=== PATIENT | female | born 1970 | race American Indian/Alaskan Native ===

== ENCOUNTER 2017-08-31 22:54 | Emergency (ER) | payer OTHER ==
[2017-08-31 23:02] VITALS: BP 96/55
--- NOTE | 2017-08-31 23:43 | Emergency Department Report ---
Abscess Boil HPI - HPI Duration: 1 Day Location: Lower Extremity Severity: Mild History: Yes Pain, Yes Insect Bite, No Fever, No Purulent Drainage, No Numbness , No Foreign Body, No Previous History HPI: Insect bite right lateral thigh less than 1 cm mild erythema no drainage no fever <FELICITY GARCIA - Last Filed: 08/31/17 23:39> <MIKI VELASQUEZ - Last Filed: 09/01/17 20:06> - HPI Chief Complaint: Skin/Abscess/Foreign Body Stated Complaint: INSECT BITE Time Seen by Provider: 08/31/17 23:23 Home Medications: Previous Rx's Medication Instructions Recorded Last Taken Type Neomycin/Bacitracin/Polymyxinb 1 applicatio TP BID 10 Days #1 tube 08/31/17 Unknown Rx [Neosporin Antibiotic Ointment] Allergies/Adverse Reactions: Allergies Allergy/AdvReac Type Severity Reaction Status Date / Time No Known Allergies Allergy Verified 08/31/17 23:02 ED Review of Systems ROS: Stated complaint: INSECT BITE Other details as noted in HPI Constitutional: denies: chills, fever Eyes: denies: eye pain, eye discharge, vision change ENT: denies: ear pain, throat pain Respiratory: denies: cough, shortness of breath, wheezing Cardiovascular: denies: chest pain, palpitations Endocrine: no symptoms reported Gastrointestinal: denies: abdominal pain, nausea, diarrhea Genitourinary: denies: urgency, dysuria, discharge Musculoskeletal: denies: back pain, joint swelling, arthralgia Skin: other (insect bite ) Neurological: denies: headache, weakness, paresthesias Psychiatric: denies: anxiety, depression Hematological/Lymphatic: denies: easy bleeding, easy bruising <FELICITY GARCIA - Last Filed: 08/31/17 23:39> ROS: Stated complaint: INSECT BITE Other details as noted in HPI <MIKI VELASQUEZ - Last Filed: 09/01/17 20:06> ED Past Medical Hx - Past Medical History Previous Medical History?: No - Surgical History Past Surgical History?: Yes Additional Surgical History: tubal ligation. recontructive surgery to face. right ankle - Social History Smoking Status: Current Every Day Smoker Substance Use Type: Alcohol, Marijuana <FELICITY GARCIA - Last Filed: 08/31/17 23:39> <MIKI VELASQUEZ - Last Filed: 09/01/17 20:06> - Medications Home Medications: Home Medications Medication Instructions Recorded Confirmed Last Taken Type Neomycin/Bacitracin/Polymyxinb 1 applicatio TP BID 10 Days #1 tube 08/31/17 Unknown Rx [Neosporin Antibiotic Ointment] ED Abscess Boil Physical Exam - Exam General: Vital signs noted. No distress. Alert and acting appropriately. Front/Back of Body, Lg (Color): 1 - right lateral thigh less than 1 cm mild erythema no drainage nonfluctuant no drainage Size: 1 cm Exam: Yes Tenderness, Yes Normal Neurologic Exam, Yes Normal Circulation, No Fluctuance, No Surrounding Cellulites/Erythema, No Lymphangitis, No Crepitation , No Heart Murmur <FELICITY GARCIA - Last Filed: 08/31/17 23:39> - Exam General: Vital signs noted. No distress. Alert and acting appropriately. <MIKI VELASQUEZ - Last Filed: 09/01/17 20:06> ED Course Vital Signs 08/31/17 22:59 Temperature 98.2 F Pulse Rate 82 Respiratory 18 Rate Blood Pressure 96/55 O2 Sat by Pulse 97 Oximetry <FELICITY GARCIA - Last Filed: 08/31/17 23:39> Vital Signs 08/31/17 22:59 Temperature 98.2 F Pulse Rate 82 Respiratory 18 Rate Blood Pressure 96/55 O2 Sat by Pulse 97 Oximetry <MIKI VELASQUEZ - Last Filed: 09/01/17 20:06> Critical care attestation.: If time is entered above; I have spent that time in minutes in the direct care of this critically ill patient, excluding procedure time. <FELICITY GARCIA - Last Filed: 08/31/17 23:39> Critical care attestation.: If time is entered above; I have spent that time in minutes in the direct care of this critically ill patient, excluding procedure time. <MIKI VELASQUEZ - Last Filed: 09/01/17 20:06> ED Medical Decision Making - Medical Decision Making This is a insect bite mild irritation manual expression of scant purulent drainage , a pimple equivelant , no surrounding erythema Band-Aid applied and the bleeding patient given wound care instruction Neosporin soap and water follow-up PCP in 2-3 days. pt verbalized agreement and understanding of same <FELICITY GARCIA - Last Filed: 08/31/17 23:39> - Medical Decision Making I was available for consultations at all times during the patient stay. I did not personally see and was not involved in the care of the patient. <MIKI VELASQUEZ - Last Filed: 09/01/17 20:06> ED Disposition Is pt being admited?: No Does the pt Need Aspirin: No Time of Disposition: 23:45 <FELICITY GARCIA - Last Filed: 08/31/17 23:39> <MIKI VELASQUEZ - Last Filed: 09/01/17 20:06> Disposition: DC-01 TO HOME OR SELFCARE Condition: Stable Instructions: Insect Bite or Sting (ED) Prescriptions: Neomycin/Bacitracin/Polymyxinb [Neosporin Antibiotic Ointment] 1 applicatio TP BID 10 Days #1 tube Referrals: [facility] [Outside] - 3-5 Days Forms: Work/School Release Form(ED)
== END 2017-08-31 23:45 | disposition home or self-care (01) ==
LOC: ED 22:54
DX: S70.361A Insect bite (nonvenomous), right thigh, initial encounter (principal); F17.200 Nicotine dependence, unspecified, uncomplicated; F12.10 Cannabis abuse, uncomplicated; Z98.51 Tubal ligation status; W57.XXXA Bitten or stung by nonvenomous insect and other nonvenomous arthropods, initial encounter; Y93.89 Activity, other specified; Y92.89 Other specified places as the place of occurrence of the external cause; Y99.8 Other external cause status
CPT/HCPCS: 99282